=== PATIENT | female | born 1930 | race Caucasian/White ===

== ENCOUNTER 2019-01-13 21:24 | Observation (INO) | payer MEDICARE, BC ==
[2019-01-13] MEDS ORDERED: Diphtheria/Tetanus Toxoids,Adult (Td) 0.5 ML SDV IM ONE (22:04)
--- NOTE | 2019-01-13 23:38 | EDM.PDOC ---
ED HPI GENERAL MEDICAL PROBLEM - General Chief Complaint: General Stated Complaint: fall, lip laceration, facial swelling, neck pain Time Seen by Provider: 01/13/19 21:30 Source of Information: Reports: Patient, EMS, Family, RN Notes Reviewed History Limitations: Reports: No Limitations - History of Present Illness INITIAL COMMENTS - FREE TEXT/NARRATIVE: Pt. states that she fell in her living room this evening, striking the R side of her face on the edge of her picture window. Pt. states that she was not knocked out and is able to recollect the entire event. EMS was summoned. On arrival pt. was alert and answering questions. He had obvious R sided head and facial trauma and pain, and complained to midline cervical spinal pain. Denied any back pain. No other complaints other than that of facial pain and swelling. She was not sure if her tetanus was up to date. She states that she has chronic radiculopathy and feels as though this contributed to her fall. Pt. denies any chest pain, shortness of breath, lightheadedness, or palpitations prior to of after the fall. She feels as though her teeth are coming together and denies any malocclusion. Face/Facial Pain Score (Numeric/FACES): 5 - Related Data Allergies Allergy/AdvReac Type Severity Reaction Status Date / Time No Known Allergies Allergy Verified 01/13/19 21:34 Home Meds: Home Meds Lisinopril 1 tab PO DAILY 01/13/19 [History] Simvastatin 1 tab PO DAILY 01/13/19 [History] amLODIPine [Norvasc] 5 mg PO DAILY 01/13/19 [History] metFORMIN [Glucophage] 500 mg PO DAILY 01/13/19 [History] Past Medical History Cardiovascular History: Reports: High Cholesterol, Hypertension Oncologic (Cancer) History: Reports: Breast - Past Surgical History GI Surgical History: Reports: Cholecystectomy, Other (See Below) Other GI Surgeries/Procedures: bowel resection due to diverticulitis Endocrine Surgical History: Reports: Other (See Below) Other Endocrine Surgeries/Procedures: partial thyroid removal Oncologic Surgical History: Reports: Mastectomy Social & Family History - Tobacco Use Smoking Status *Q: Never Smoker ED ROS GENERAL - Review of Systems Review Of Systems: See Below Constitutional: Reports: No Symptoms HEENT: Reports: Other (difficulty seeing from R eye due to severe periorbital edema. Is able to otherwise see and denies any entrapment. Severe contusions to R side of face. Laceration to lip.) Respiratory: Reports: No Symptoms Cardiovascular: Reports: No Symptoms Endocrine: Reports: No Symptoms GI/Abdominal: Reports: No Symptoms : Reports: No Symptoms Musculoskeletal: Reports: Neck Pain Skin: Reports: No Symptoms Neurological: Reports: No Symptoms Psychiatric: Reports: No Symptoms Hematologic/Lymphatic: Reports: No Symptoms Immunologic: Reports: No Symptoms ED EXAM, GENERAL - Physical Exam Exam: See Below Exam Limited By: No Limitations General Appearance: Alert, WD/WN, No Apparent Distress Eye Exam: Bilateral Eye: EOMI, Normal Fundi, Normal Inspection, PERRL Ears: Normal External Exam, Normal Canal, Hearing Grossly Normal, Normal TMs Ear Exam: Bilateral Ear: Auricle Normal, Canal Normal, TM normal Nose: Normal Inspection, Normal Mucosa, No Blood Throat/Mouth: Other (through and through puncture/laceration to R upper lip. approx. 2 cm. Inner laceration approx. 1 cm. No obvious other oral trauma. Significant edema and hematoma to R zygomatic arch.) Neck: Normal Inspection, Supple, Full Range of Motion, Tender Midline Respiratory/Chest: No Respiratory Distress, Lungs Clear, Normal Breath Sounds, No Accessory Muscle Use, Chest Non-Tender Cardiovascular: Normal Peripheral Pulses, Regular Rate, Rhythm, No Edema, No Gallop, No JVD, No Murmur, No Rub Peripheral Pulses: 3+: Dorsalis Pedis (L), Dorsalis Pedis (R), 4+: Radial (L), Radial (R) GI/Abdominal: Normal Bowel Sounds, Soft, Non-Tender, No Organomegaly, No Distention, No Abnormal Bruit, No Mass (Female) Exam: Deferred Rectal (Female) Exam: Deferred Back Exam: Normal Inspection, Full Range of Motion Extremities: Normal Inspection, Normal Range of Motion, Non-Tender, No Pedal Edema, Normal Capillary Refill Neurological: Alert, Oriented, CN II-XII Intact, Normal Cognition, Normal Gait, Normal Reflexes, No Motor/Sensory Deficits Psychiatric: Normal Affect, Normal Mood Skin Exam: Warm, Dry, Intact, Normal Color, No Rash Lymphatic: No Adenopathy ED GENERAL MEDICAL PROCEDURES - Laceration/Wound Repair Right Upper Mouth Lac/wound length in cm: 3 Appearance: Muscle Anesthetic Type: Local Local Anesthesia - Lidocaine (Xylocaine): 1% Plain Local Anesthetic Volume: 4cc Skin Prep: Chlorhexidine (Hibiciens), Saline Saline irrigation (cc's): 4 Exploration/Debridement/Repair: Wound Explored Closed with: Sutures Suture Size: 5-0 # of Sutures: 6 Suture Type: Nylon Progress/Comments: 4 sutures were used to close the outside of the lip and 2 were used to close the inside. Excellent wound approximation and hemostasis was achieved. Course - Vital Signs Last Recorded V/S: Last Vital Signs Temp 36.6 C 01/13/19 21:31 Pulse 89 01/13/19 21:31 Resp 18 01/13/19 21:31 BP 141/50 H 01/13/19 21:31 Pulse Ox 98 01/13/19 21:31 - Orders/Labs/Meds Orders: Active Orders 24 hr Category Date Time Status Vaccines to be Administered [RC] PER UNIT ROUTINE Care 01/13/19 22:04 Active Cervical Spine wo Cont [CT] Stat Exams 01/13/19 21:35 Taken Head wo Cont [CT] Stat Exams 01/13/19 21:34 Taken Max Facial Sinus wo Cont [CT] Stat Exams 01/13/19 21:35 Taken Medication Orders Hydrocodone Bitart/Acetaminophen ([place] 325-5 Mg) 1 tab PO Q4H PRN PRN Reason: Pain (severe 7-10) Amlodipine Besylate (Norvasc) 5 mg PO DAILY [place] Lisinopril (Prinivil) 20 mg PO DAILY [facility] Metformin HCl (Glucophage) 500 mg PO DAILY [facility] Simvastatin (Zocor) 10 mg PO DAILY [facility] Meds: Medications Generic Name Dose Route Start Last Admin Trade Name Freq PRN Reason Stop Dose Admin Hydrocodone Bitart/Acetaminophen 1 tab 01/13/19 23:30 [place] 325-5 Mg PO Q4H PRN Pain (severe 7-10) Amlodipine Besylate 5 mg 01/14/19 08:00 Norvasc PO DAILY [facility] Lisinopril 20 mg 01/14/19 08:00 Prinivil PO DAILY [facility] Metformin HCl 500 mg 01/14/19 08:00 Glucophage PO DAILY [facility] Simvastatin 10 mg 01/14/19 08:00 Zocor PO DAILY [facility] Discontinued Medications Generic Name Dose Route Start Last Admin Trade Name Freq PRN Reason Stop Dose Admin Lidocaine HCl 5 ml 01/13/19 22:03 01/13/19 22:12 Xylocaine-Mpf 1% INJECT 01/13/19 22:04 5 ml ONETIME ONE Administration Tetanus/Diphtheria Toxoids 0.5 ml 01/13/19 22:04 01/13/19 22:12 Tenivac IM 01/13/19 22:05 0.5 ml .ONCE ONE Administration - Radiology Interpretation Free Text/Narrative:: CT brain obtained. No intracranial abnormality noted. CT c-spine does not reveal any acute trauma. She does have what appears to be an old T3 compression fx. She is not tender in this area. CT facial bones does not reveal any acute pathology. She does have evidence of severe R periorbital and premaxillary contusion/hematoma. Departure - Departure Time of Disposition: 23:30 Disposition: Refer to Observation Clinical Impression: Facial contusion, Laceration of lip, Cervical strain, acute, Closed head injury - Discharge Information - Problem List Review Problem List Initiated/Reviewed/Updated: Yes - My Orders Last 24 Hours: My Active Orders 01/13/19 21:34 Head wo Cont [CT] Stat 01/13/19 21:35 Cervical Spine wo Cont [CT] Stat Max Facial Sinus wo Cont [CT] Stat 01/13/19 22:04 Vaccines to be Administered [RC] PER UNIT ROUTINE - Assessment/Plan Admission H&P: Please use this note as an admission H&P Last 24 Hours: My Active Orders 01/13/19 21:34 Head wo Cont [CT] Stat 01/13/19 21:35 Cervical Spine wo Cont [CT] Stat Max Facial Sinus wo Cont [CT] Stat 01/13/19 22:04 Vaccines to be Administered [RC] PER UNIT ROUTINE Plan: Pt. will be admitted observation. All of her studies did not reveal any acute trauma. Will institute neuro checks every 2 hours. She will need to have a panerex of her teeth at her dentist of choice in the near future. Tetanus was updated. She does not require any antibiotic therapy at this time. Anticipate discharge tomorrow. Will have her seen by PT and OT for discharge planning and to discuss fall prevention. CBC and CMP ordered for AM. All questions were answered.
[2019-01-14] MEDS: Acetaminophen/HYDROcodone 325-5 MG Tab PO PRN (04:17)
[2019-01-14] MEDS: amLODIPine 5 MG Tab PO SCH (07:51)
[2019-01-14] MEDS: metFORMIN 500 MG Tab PO SCH (07:51)
[2019-01-14] MEDS: Lisinopril 20 MG Tab PO SCH (07:52)
[2019-01-14] MEDS: Simvastatin 10 MG Tab PO SCH (07:52)
[2019-01-14 08:29] LABS: CHLORIDE,CL 107 mmol/L (98-107); SODIUM,NA 142 mmol/L (136-145)
[2019-01-14 08:30] LABS: ANION GAP 13.2 mmol/L (10-20)
--- NOTE | 2019-01-14 10:13 | PCM.PN ---
- General Info Date of Service: 01/14/19 Admission Dx/Problem (Free Text): Pt. did well overnight. She states that her pain is controlled with her norco. Her facial swelling has improved considerably. She tolerated her breakfast this AM. Family is concerned about her ability to go home and take care of herself. 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 This has been going on for at least 6 months and his a chronic problem. It has not been addressed, however. Pt. has not underdone any PT and has not had an MRI to determine the problems with her back. Again, the patient's PCP is in [place] and she has no local PCP. Pt. lives by herself in a house. Medium and skilled nursing, pt. will probably need skilled nursing care or assisted living as she has issues with ambulation. Functional Status: Reports: Pain Controlled, Tolerating Diet, Ambulating - Review of Systems General: Reports: No Symptoms HEENT: Reports: Other (facial contusions, decreased in size from yesterday) Pulmonary: Reports: No Symptoms Cardiovascular: Reports: No Symptoms Gastrointestinal: Reports: No Symptoms Genitourinary: Reports: No Symptoms Musculoskeletal: Reports: No Symptoms Skin: Reports: No Symptoms Neurological: Reports: No Symptoms Psychiatric: Reports: No Symptoms - Patient Data Vitals - Most Recent: Last Vital Signs Temp 36.9 C 01/14/19 06:00 Pulse 78 01/14/19 06:00 Resp 14 01/14/19 06:00 BP 132/62 01/14/19 07:52 Pulse Ox 95 01/14/19 06:00 Weight - Most Recent: 90.718 kg I&O - Last 24 Hours: Intake & Output 01/13/19 01/14/19 01/14/19 22:59 06:59 14:59 Intake Total 75 400 Output Total 200 Balance -125 400 Lab Results Last 24 Hours: Laboratory Results - last 24 hr 01/14/19 01/14/19 Range/Units 07:23 07:23 WBC 9.6 (4.0-10.0) x10^3/uL RBC 4.14 (4.00-5.50) x10^6/uL Hgb 12.3 (12.0-16.0) g/dL Hct 36.4 (33.0-47.0) % MCV 87.9 (78.0-93.0) fL MCH 29.7 (26.0-32.0) pg MCHC 33.8 (32.0-36.0) g/dL RDW Coeff of [place] 14.5 (10.0-15.0) % Plt Count 127 L (130-400) x10^3/uL Add Manual Diff Yes Neutrophils % (Manual) 69 (50-80) % Lymphocytes % (Manual) 19 L (25-50) % Monocytes % (Manual) 9 (2-11) % Eosinophils % (Manual) 3 (0-4) % Platelet Estimate Decreased L Giant Platelets Few H Sodium 142 (136-145) mmol/L Potassium 4.2 (3.5-5.1) mmol/L Chloride 107 (98-107) mmol/L Carbon Dioxide 26 (21-32) mmol/L Anion Gap 13.2 (10-20) mmol/L BUN 21 H (7-18) mg/dL Creatinine 0.8 (0.55-1.02) mg/dL Est Cr Clr Drug Dosing 42.78 mL/min Estimated GFR (MDRD) > 60 Glucose 160 H (74-106) mg/dL Calcium 8.7 (8.5-10.1) mg/dL Corrected Calcium 9.50 (8.5-10.1) mg/dL Total Bilirubin 1.0 (0.2-1.0) mg/dL AST 20 (15-37) U/L ALT 21 (14-59) U/L Alkaline Phosphatase 97 (46-116) U/L Total Protein 6.2 L (6.4-8.2) g/dL Albumin 3.0 L (3.4-5.0) g/dL Globulin 3.2 Albumin/Globulin Ratio 0.94 Med Orders - Current: Current Medications Hydrocodone Bitart/Acetaminophen ([place] 325-5 Mg) 1 tab PO Q4H PRN PRN Reason: Pain (severe 7-10) Last Admin: 01/14/19 04:17 Dose: 1 tab Amlodipine Besylate (Norvasc) 5 mg PO DAILY [facility] Last Admin: 01/14/19 07:51 Dose: 5 mg Lisinopril (Prinivil) 20 mg PO DAILY [facility] Last Admin: 01/14/19 07:52 Dose: 20 mg Metformin HCl (Glucophage) 500 mg PO DAILY [facility] Last Admin: 01/14/19 07:51 Dose: 500 mg Simvastatin (Zocor) 10 mg PO DAILY [facility] Last Admin: 01/14/19 07:52 Dose: 10 mg Discontinued Medications Lidocaine HCl (Xylocaine-Mpf 1%) 5 ml INJECT ONETIME ONE Stop: 01/13/19 22:04 Last Admin: 01/13/19 22:12 Dose: 5 ml Tetanus/Diphtheria Toxoids (Tenivac) 0.5 ml IM .ONCE ONE Stop: 01/13/19 22:05 Last Admin: 01/13/19 22:12 Dose: 0.5 ml - Exam General: Alert, Oriented HEENT: Pupils Equal, Pupils Reactive, EOMI, Mucous Membr. Moist/[place], Other ( contusions to face, severe ecchymosis. No further active bleeding. Pt. is able to see out of the R eye.) Neck: Supple Lungs: Clear to Auscultation, Normal Respiratory Effort Cardiovascular: Regular Rate, Regular Rhythm GI/Abdominal Exam: Normal Bowel Sounds, Soft, Non-Tender, No Organomegaly, No Distention, No Abnormal Bruit, No Mass, Pelvis Stable (Female) Exam: Deferred Back Exam: Normal Inspection, Full Range of Motion Extremities: Normal Inspection, Normal Range of Motion, Non-Tender, No Pedal Edema, Normal Capillary Refill Skin: Warm, Dry, Intact Wound/Incisions: Healing Well Neurological: No New Focal Deficit Psy/Mental Status: Alert, Normal Affect, Normal Mood - Problem List Review Problem List Initiated/Reviewed/Updated: Yes - My Orders Last 24 Hours: My Active Orders 01/13/19 21:34 Head wo Cont [CT] Stat 01/13/19 21:35 Cervical Spine wo Cont [CT] Stat Max Facial Sinus wo Cont [CT] Stat 01/13/19 22:04 Vaccines to be Administered [RC] PER UNIT ROUTINE 01/13/19 22:43 Patient Status [ADT] Routine 01/13/19 23:28 Intake and Output [RC] 06,18 Up With Assistance [RC] 08,20 Vital Signs [RC] 06,10,14,18,22,02 01/13/19 23:29 Code Status [Resuscitation Status] Routine 01/13/19 23:30 Consult to Physical Therapy [PT Evaluation and Treatment] [CONS] Routine Acetaminophen/HYDROcodone [[place] 325-5 MG] 1 tab PO Q4H PRN 01/13/19 23:31 OT Evaluation and Treatment [CONS] Routine 01/14/19 08:00 Lisinopril [Prinivil] 20 mg PO DAILY Simvastatin [Zocor] 10 mg PO DAILY amLODIPine [Norvasc] 5 mg PO DAILY metFORMIN [Glucophage] 500 mg PO DAILY 01/14/19 08:46 Neuro Check [RC] Q2H - Plan Plan:: Pt. does not meet acute criteria. Discussed this at length with the patient and family. If they want her to stay longer, she would need to be self pay swing. They were quite unhappy about this, but seem to understand. Pt. meets criteria for 48 hour observation stay. Unfortunately PT and OT as well as social work are off for the holiday. Pt. rehab potential is fair to poor. Will get her up and ambulating today with a walker (she has not used a walker in the past). Advised transitioning to a local provider to facilitate continuity of care. She states that she has seen Dr. Thompson in the past. It would be helpful to have someone local to facilitate ordering or MRI and doing workup for assisted living or jail placement. She does need to see PT and OT and will need to be assessed to determine the most appropriate placement. All questions were answered.
--- NOTE | 2019-01-14 16:38 | CT ---
[id number] CT/CT Head WO IV EXAM: CT Head WO IV CLINICAL DATA: FALL,HIT FACE ON WINDOW SILL. COMPARISON STUDY: None FINDINGS: No intracranial hemorrhage, extra-axial fluid collection, mass, or acute ischemia. Generalized parenchymal atrophy with scattered areas of nonspecific white matter disease, commonly seen as sequela of chronic microvascular ischemia. Large right periorbital edema/hematoma without underlying fracture. Paranasal sinuses and mastoid air cells are clear. IMPRESSION: No acute intracranial findings. Large right periorbital edema/hematoma without underlying fracture. Carroll King DO 01/14/19 [id number] Thank you for allowing us to participate in the care of your patient.
--- NOTE | 2019-01-14 16:43 | CT ---
[id number] CT/CT Facial Bones WO IV EXAM: CT FACIAL BONES INDICATION: FALL,STRUCK FACE ON WINDOW SILL. COMPARISON: None. DISCUSSION: No facial bone fracture or suspicious osseous lesion identified. The paranasal sinuses are normally aerated. Large right periorbital hematoma/edema. The orbits are unremarkable. IMPRESSION: 1. No acute facial bone fractures are identified. Large right periorbital hematoma/edema. Carroll King DO 01/14/19 [id number] Thank you for allowing us to participate in the care of your patient.
--- NOTE | 2019-01-14 16:47 | CT ---
[id number] CT/CT Cervical Spine WO IV Exam: CT Cervical Spine WO IV CLINICAL DATA: FALL, NECK PAIN. COMPARISON: None. FINDINGS: No fracture or subluxation is seen. The C1-C2 articulation is unremarkable. The prevertebral soft tissues are within normal limits. Generalized osseous demineralization. Multilevel degenerative changes of the cervical spine including loss of disc space height, endplate osteophytosis and facet arthropathy. These findings are most pronounced at C5-C6 and C6-C7. IMPRESSION: NO ACUTE FRACTURE OR SUBLUXATION. Carroll King DO 01/14/19 [id number] Thank you for allowing us to participate in the care of your patient.
[2019-01-15] MEDS: amLODIPine 5 MG Tab PO SCH (07:24)
[2019-01-15] MEDS: Simvastatin 10 MG Tab PO SCH (07:24)
[2019-01-15] MEDS: metFORMIN 500 MG Tab PO SCH (07:24)
[2019-01-15] MEDS: Lisinopril 20 MG Tab PO SCH (07:24)
[2019-01-15] MEDS: Acetaminophen/HYDROcodone 325-5 MG Tab PO PRN (08:54)
--- NOTE | 2019-01-15 11:12 | PCM.DCSUM1 ---
Discharge Summary - Hospital Course HPI Initial Comments: Patient was admitted observation due to recent fall at her home. She did strike the right side of her face, causing both an external and internal laceration of the right lateral lip. CT evaluations of the head, facial bones, cervical spine were negative for acute fractures. She has marked hematoma to the entire right side of her face. Complains of chronic back pain, radiculopathy bilaterally, neuropathy bilaterally. Diagnosis: Stroke: No Modified [place] Scale: No Symptoms at All Modified [place] Scale Score: 0 - Discharge Data Discharge Date: 01/15/19 Discharge Disposition: Home, W Home Health Agency 06 Condition: Good - Discharge Diagnosis/Problem(s) (1) Facial contusion SNOMED Code(s): 112183329 ICD Code: S00.83XA - CONTUSION OF OTHER PART OF HEAD, INITIAL ENCOUNTER Status: Acute Priority: Medium Current Visit: Yes Qualifiers: Encounter type: subsequent encounter Qualified Code(s): S00.83XD - Contusion of other part of head, subsequent encounter (2) Laceration of lip SNOMED Code(s): 155680275 ICD Code: S01.511A - LACERATION WITHOUT FOREIGN BODY OF LIP, INITIAL ENCOUNTER Status: Acute Priority: Low Current Visit: Yes Qualifiers: Encounter type: subsequent encounter Qualified Code(s): S01.511D - Laceration without foreign body of lip, subsequent encounter - Patient Summary/Data Consults: Consultations 01/13/19 23:30 Consult to Physical Therapy [PT Evaluation and Treatment] [CONS] Routine 01/13/19 23:31 OT Evaluation and Treatment [CONS] Routine Recommended Follow-up Testing/Procedures: Follow up with Dr. Thompson at the [facility] in [place]. She recommends next week Monday. Removal of sutures in 10-14 days at the clinic Walk with walker at all times when up Recommended adhering to OT/PT recommendations and visits - Patient Instructions Diet: Usual Diet as Tolerated Activity: As Tolerated (with walker) Driving: Do Not Drive Showering/Bathing: May Shower Notify Provider of: Increased Pain - Discharge Plan *PRESCRIPTION DRUG MONITORING PROGRAM REVIEWED*: No *COPY OF PRESCRIPTION DRUG MONITORING REPORT IN PATIENT [place]: No Home Medications: Home Meds Lisinopril 1 tab PO DAILY 01/13/19 [History] Simvastatin 1 tab PO DAILY 01/13/19 [History] amLODIPine [Norvasc] 5 mg PO DAILY 01/13/19 [History] metFORMIN [Glucophage] 500 mg PO DAILY 01/13/19 [History] Oxygen Therapy Mode: Room Air Forms: ED Department Discharge Referrals: BALJEET KRISHNAN [Other] - Discharge Summary/Plan Comment DC Time >30 min.: Yes Discharge Summary/Plan Comment: I have visited with Dr. Janel Thompson regarding assuming home health care direction. She has agreed and did recommend a visit at the [facility] next week Monday. Remove sutures in 10-14 days. Utilize walker when ambulating. Home health care needed due to: Patient will be at least in the short term while gaining strength, acclimating to the use of a new walker, PT/OT evaluation and exercises, chronicity of back pain, neuropathy and radiculopathy Needs skilled services, including but not limited to: PT/OT to see and evaluate for strength, ambulation, home modifications Discharge plan to include referral and follow up with Dr. Janel Thompson who will monitor home health services. Patient will continue to utilize walker likely for duration. Continued evaluation needed for safety at home versus need for assisted living or long term care administrator care. - General Info Date of Service: 01/15/19 Admission Dx/Problem (Free Text: Pt. did well overnight. She states that her pain is controlled with her norco. Her facial swelling has improved considerably. She tolerated her breakfast this AM. Family is concerned about her ability to go home and take care of herself. 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 This has been going on for at least 6 months and his a chronic problem. It has not been addressed, however. Pt. has not underdone any PT and has not had an MRI to determine the problems with her back. Again, the patient's PCP is in [place] and she has no local PCP. Pt. lives by herself in a house. Medium and snf, pt. will probably need long term care administrator care or assisted living as she has issues with ambulation. Functional Status: Reports: Pain Controlled, Tolerating Diet, Ambulating - Review of Systems General: Reports: No Symptoms HEENT: Reports: No Symptoms Pulmonary: Reports: No Symptoms Cardiovascular: Reports: No Symptoms Gastrointestinal: Reports: No Symptoms Genitourinary: Reports: No Symptoms Musculoskeletal: Reports: Back Pain, Other (does have facial pain) Skin: Reports: Bruising (facial) Neurological: Reports: Numbness, Difficulty Walking (due to radiculopathy bilateral) Psychiatric: Reports: No Symptoms - Patient Data Vitals - Most Recent: Last Vital Signs Temp 36.4 C 01/15/19 05:50 Pulse 88 01/15/19 05:50 Resp 18 01/15/19 05:50 BP 149/63 H 01/15/19 07:24 Pulse Ox 97 01/15/19 05:50 Weight - Most Recent: 90.718 kg I&O - Last 24 hours: Intake & Output 01/14/19 01/15/19 01/15/19 22:59 06:59 14:59 Intake Total 120 150 240 Balance 120 150 240 Med Orders - Current: Current Medications Hydrocodone Bitart/Acetaminophen ([place] 325-5 Mg) 1 tab PO Q4H PRN PRN Reason: Pain (severe 7-10) Last Admin: 01/15/19 08:54 Dose: 1 tab Amlodipine Besylate (Norvasc) 5 mg PO DAILY [facility] Last Admin: 01/15/19 07:24 Dose: 5 mg Lisinopril (Prinivil) 20 mg PO DAILY [facility] Last Admin: 01/15/19 07:24 Dose: 20 mg Metformin HCl (Glucophage) 500 mg PO DAILY [facility] Last Admin: 01/15/19 07:24 Dose: 500 mg Simvastatin (Zocor) 10 mg PO DAILY [facility] Last Admin: 01/15/19 07:24 Dose: 10 mg Discontinued Medications Lidocaine HCl (Xylocaine-Mpf 1%) 5 ml INJECT ONETIME ONE Stop: 01/13/19 22:04 Last Admin: 01/13/19 22:12 Dose: 5 ml Tetanus/Diphtheria Toxoids (Tenivac) 0.5 ml IM .ONCE ONE Stop: 01/13/19 22:05 Last Admin: 01/13/19 22:12 Dose: 0.5 ml - Exam General: Reports: Alert, Oriented, Cooperative, No Acute Distress HEENT: Reports: Pupils Equal, Pupils Reactive, EOMI Neck: Reports: Supple Lungs: Reports: Clear to Auscultation, Normal Respiratory Effort Cardiovascular: Reports: Regular Rate, Regular Rhythm GI/Abdominal Exam: Normal Bowel Sounds, Soft, Non-Tender, No Organomegaly, No Distention, No Abnormal Bruit, No Mass, Pelvis Stable Back Exam: Reports: Normal Inspection, Full Range of Motion Extremities: Normal Inspection, Normal Range of Motion, Non-Tender, No Pedal Edema, Normal Capillary Refill Skin: Reports: Warm, Dry, Intact, Ecchymosis (right facial area is ecchymotic from forehead to neck, laceration sutures are intact, no s/s infection) Wound/Incisions: Reports: Healing Well, No Drainage Neurological: Reports: No New Focal Deficit Psy/Mental Status: Reports: Alert, Normal Affect, Normal Mood
== END 2019-01-15 12:02 | disposition home health service (06) ==
LOC: VM.ED 21:24 → VM.MS 22:43
PROVIDERS: ADMIT Physician Assistant; ATTEND Physician Assistant
DX: S01.511A Laceration without foreign body of lip, initial encounter (principal); G89.29 Other chronic pain; M54.9 Dorsalgia, unspecified; M54.10 Radiculopathy, site unspecified; E78.00 Pure hypercholesterolemia, unspecified; I10 Essential (primary) hypertension; W22.8XXA Striking against or struck by other objects, initial encounter; Z79.899 Other long term (current) drug therapy; Z79.84 Long term (current) use of oral hypoglycemic drugs
CPT/HCPCS: 12013; 12051; 36415; 70450; 70486; 72125; 80053; 85025; 90471; 90714; 97161; 97165; 99217; 99220; 99225; 99284; A9270; G0378; J2001